=== PATIENT | male | born 1935 | race Caucasian/White ===

== ENCOUNTER 2024-02-12 09:23 | Emergency (ER) | payer MEDICARE | END 2024-02-12 10:44 | disposition home or self-care (01) | LOC: ERS 09:23 | DX: S09.90XA Unspecified injury of head, initial encounter (principal); S16.1XXA Strain of muscle, fascia and tendon at neck level, initial encounter; E11.9 Type 2 diabetes mellitus without complications; W19.XXXA Unspecified fall, initial encounter | CPT/HCPCS: 70450; 72125 ==